=== PATIENT | female | born 1960 | race Caucasian/White ===

== ENCOUNTER → 2017-08-27 | Outpatient (CLI) | payer OTHER ==
--- NOTE | 2017-08-27 18:48 | US ---
EXAMINATION TYPE: US venous doppler duplex LE LT DATE OF EXAM: 08/27/2017 6:38 PM COMPARISON: NONE CLINICAL HISTORY: I80.02 Phlebitis and thrombophlebitis of superfici. Left calf pain and edema. SIDE PERFORMED: Left TECHNIQUE: The lower extremity deep venous system is examined utilizing real time linear array sonog kari with graded compression, doppler sonography and color-flow sonography. VESSELS IMAGED: External Iliac Vein (EIV) Common Femoral Vein Deep Femoral Vein Greater Saphenous Vein * Femoral Vein Popliteal Vein Small Saphenous Vein * Proximal Calf Veins (* superficial vessels) Left Leg: Negative for DVT Appears to be superficial thrombophlebitis in the left calf area of pain and edema. IMPRESSION: No evidence of deep venous thrombosis. There is some superficial calf veins with thrombus however.
== END | disposition home or self-care (01) ==
LOC: RADUSMAIN 17:59
PROVIDERS: ATTEND Family Medicine
DX: I82.812 Embolism and thrombosis of superficial veins of left lower extremity (principal)

== ENCOUNTER 2020-02-01 19:43 | Emergency (ER) | payer BC ==
[2020-02-01] MEDS ORDERED: ONDANSETRON 4 MG/2 ML VIAL IVP STA (21:26)
[2020-02-01] MEDS ORDERED: MORPHINE SULFATE 4 MG/ML SYRINGE IVP STA (21:26)
[2020-02-01 21:27] LABS: Basophils % (A) 0 %; Eosinophils # (A) 0.1 k/uL (0-0.7); Eosinophils % (A) 1 %; HCT 37.7 % (34.0-46.0); HGB 11.9 gm/dL (11.4-16.0); Hypochromasia Slight; Lymphocytes # (A) 1.8 k/uL (1.0-4.8); Lymphocytes % (A) 12 %; MCH 25.7 pg (25.0-35.0); MCHC 31.5 g/dL (31.0-37.0); MCV 81.9 fL (80.0-100.0); Mean Platelet Volume 7.3; Monocytes % (A) 6 %; Neutrophils % (A) 79 %; Platelet Count 490 k/uL (150-450); RBC 4.61 m/uL (3.80-5.40); RDW 12.9 % (11.5-15.5); WBC 15.2 k/uL (3.8-10.6)
[2020-02-01] MEDS ORDERED: ACETAMINOPHEN TAB 500 MG TAB PO STA (21:27)
[2020-02-01] MEDS ORDERED: SODIUM CHLORIDE 0.9% 1,000 ML IV ONE (21:27)
[2020-02-01 21:36] LABS: Prothrombin Time 10.6 sec (9.0-12.0)
[2020-02-01 21:47] LABS: ALT 30 U/L (4-34); AST 40 U/L (14-36); African American GFR (CKD) >90 (>60 ml/min/1.73 sqM); Albumin 3.2 g/dL (3.5-5.0); Alkaline Phosphatase 132 U/L (38-126); Anion Gap 9 mmol/L; Blood Urea Nitrogen 14 mg/dL (7-17); Calcium 8.6 mg/dL (8.4-10.2); Carbon Dioxide 23 mmol/L (22-30); Chloride 100 mmol/L (98-107); Glucose 112 mg/dL (74-99); Non-African American GFR(CKD) 82 (>60 ml/min/1.73 sqM); Potassium 4.3 mmol/L (3.5-5.1); Sodium 132 mmol/L (137-145); Total Bilirubin 0.6 mg/dL (0.2-1.3); Total Protein 6.7 g/dL (6.3-8.2)
--- NOTE | 2020-02-01 22:35 | ED ---
Abdominal Pain HPI - General Chief Complaint: Abdominal Pain Stated Complaint: Abd Pain Time Seen by Provider: 02/01/20 20:46 Source: patient Mode of arrival: ambulatory - History of Present Illness Initial Comments: Patient is a 5-year-old female who presents emergency room in with reported left lower quadrant pain. Reports the pain has been present for about a week. It is constant in nature. She saw her primary care physician last Sunday. Laboratory studies were conducted, she had an elevated white blood cell count. She was given Zofran and azithromycin. Has been taking the medications as directed however reports it's not getting better. Denies any previous history of colitis, diverticulitis or renal stones. Admits to vomiting earlier this week. It is nonbilious nonbloody. Also reports to constipation. [place] chills and fatigue today. Upon arrival it is noted the patient is a fever. Denies dysuria, hematuria or difficult voiding. No ripping or tearing sensation to her back. No lower extremity pain or weakness. No other alleviating, precipitating or modifying factors - Related Data Allergies Allergy/AdvReac Type Severity Reaction Status Date / Time No Known Allergies Allergy Verified 02/01/20 20:27 Review of Systems ROS Statement: Those systems with pertinent positive or pertinent negative responses have been documented in the HPI. ROS Other: All systems not noted in ROS Statement are negative. Past Medical History Past Medical History: No Reported History History of Any Multi-Drug Resistant Organisms: None Reported Past Surgical History: No Surgical Hx Reported Past Psychological History: No Psychological Hx Reported Smoking Status: Current every day smoker Past Alcohol Use History: None Reported Past Drug Use History: None Reported General Exam General appearance: alert, in no apparent distress Head exam: Present: atraumatic, normocephalic, normal inspection Eye exam: Present: normal appearance, PERRL, EOMI. Absent: scleral icterus, conjunctival injection, periorbital swelling ENT exam: Present: normal exam, mucous membranes moist Neck exam: Present: normal inspection. Absent: tenderness, meningismus, lymphadenopathy Respiratory exam: Present: normal lung sounds bilaterally. Absent: respiratory distress, wheezes, rales, rhonchi, stridor Cardiovascular Exam: Present: regular rate, normal rhythm, normal heart sounds. Absent: systolic murmur, diastolic murmur, rubs, gallop, clicks GI/Abdominal exam: Present: soft, tenderness (LLQ ), normal bowel sounds. Absent: distended, guarding, rebound, rigid Extremities exam: Present: normal inspection, full ROM, normal capillary refill. Absent: tenderness, pedal edema, joint swelling, calf tenderness Back exam: Present: normal inspection Neurological exam: Present: alert, oriented X3, CN II-XII intact Psychiatric exam: Present: normal affect, normal mood Skin exam: Present: warm, dry, intact, normal color. Absent: rash Course Vital Signs 02/01/20 02/01/20 02/02/20 20:21 23:32 01:00 Temperature 101.1 F H 98.7 F 97.7 F Pulse Rate 91 59 L Respiratory 18 16 Rate Blood Pressure 152/78 142/78 O2 Sat by Pulse 96 97 Oximetry Medical Decision Making - Medical Decision Making Upon arrival patient was placed into room 5. A thorough history and physical exam was performed. Peripheral IV was established. The patient was given a liter bolus of normal saline as well as 4 mg of morphine and 4 mg of Zofran. Patient is given a gram of Tylenol for her fever. Laboratory studies were conducted which has had a white count of 15.2. Urinalysis is positive for large leukocyte Estrace, 20 red blood cells, greater than 182 white blood cells and rare bacteria. CT of the patient's abdomen and pelvis demonstrate complex retroperitoneal mass on the left which is most likely a large retroperitoneal abscess. Large left renal calculus with advanced atrophy of the left kidney. Dilated fluid-filled left ureter. I discussed results the patient. Results are all discussed with Dr. Eid at [phone]. She is willing to admit the patient to her facility with aortic consult. A call discuss case with Dr. Negro at [phone]. He reviews the patient's images and calls me back at [phone]. Reports the patient should be transferred to a tertiary facility as he is concerned the patient will require nephrectomy. I discussed this with the patient. She is requesting to go via private vehicle. He did inform her of the benefits of going by ambulance the risks of going by private vehicle. The patient continues to refuse months ago by private vehicle. Case discussed with [facility]. Accepting physician is Dr. Hager. Dr. Jones is a surgical attending. Patient was given a dose of Rocephin. Blood cultures were obtained. Patient is instructed to go likely to [facility] this time without stopping at home. The patient understood and she'll be transferred in stable condition - Lab Data Result diagrams: 02/01/20 21:09 02/01/20 21:09 Lab Results 02/01/20 02/01/20 02/01/20 Range/Units 21:09 21:09 21:09 WBC 15.2 H (3.8-10.6) k/uL RBC 4.61 (3.80-5.40) m/uL Hgb 11.9 (11.4-16.0) gm/dL Hct 37.7 (34.0-46.0) % MCV 81.9 (80.0-100.0) fL MCH 25.7 (25.0-35.0) pg MCHC 31.5 (31.0-37.0) g/dL RDW 12.9 (11.5-15.5) % Plt Count 490 H (150-450) k/uL Neutrophils % 79 % Lymphocytes % 12 % Monocytes % 6 % Eosinophils % 1 % Basophils % 0 % Neutrophils # 12.0 H (1.3-7.7) k/uL Lymphocytes # 1.8 (1.0-4.8) k/uL Monocytes # 1.0 (0-1.0) k/uL Eosinophils # 0.1 (0-0.7) k/uL Basophils # 0.0 (0-0.2) k/uL Hypochromasia Slight PT (9.0-12.0) sec INR (<1.2) APTT (22.0-30.0) sec Sodium 132 L (137-145) mmol/L Potassium 4.3 (3.5-5.1) mmol/L Chloride 100 (98-107) mmol/L Carbon Dioxide 23 (22-30) mmol/L Anion Gap 9 mmol/L BUN 14 (7-17) mg/dL Creatinine 0.79 (0.52-1.04) mg/dL Est GFR (CKD-EPI)AfAm >90 (>60 ml/min/1.73 sqM) Est GFR (CKD-EPI)NonAf 82 (>60 ml/min/1.73 sqM) Glucose 112 H (74-99) mg/dL Plasma Lactic Acid Armando (0.7-2.0) mmol/L Calcium 8.6 (8.4-10.2) mg/dL Total Bilirubin 0.6 (0.2-1.3) mg/dL AST 40 H (14-36) U/L ALT 30 (4-34) U/L Alkaline Phosphatase 132 H (38-126) U/L Total Protein 6.7 (6.3-8.2) g/dL Albumin 3.2 L (3.5-5.0) g/dL Lipase 25 (23-300) U/L Urine Color Yellow Urine Appearance Cloudy H (Clear) Urine pH 6.0 (5.0-8.0) Ur Specific [place] >1.050 H (1.001-1.035) Urine Protein 1+ H (Negative) Urine Glucose (UA) Negative (Negative) Urine Ketones Negative (Negative) Urine Blood Small H (Negative) Urine Nitrite Negative (Negative) Urine Bilirubin Negative (Negative) Urine Urobilinogen <2.0 (<2.0) mg/dL Ur Leukocyte Esterase Large H (Negative) Urine RBC 20 H (0-5) /hpf Urine WBC >182 H (0-5) /hpf Ur Squamous Epith Cells 2 (0-4) /hpf Urine Bacteria Rare H (None) /hpf Urine Mucus Rare H (None) /hpf 02/01/20 02/01/20 Range/Units 21:09 21:10 WBC (3.8-10.6) k/uL RBC (3.80-5.40) m/uL Hgb (11.4-16.0) gm/dL Hct (34.0-46.0) % MCV (80.0-100.0) fL MCH (25.0-35.0) pg MCHC (31.0-37.0) g/dL RDW (11.5-15.5) % Plt Count (150-450) k/uL Neutrophils % % Lymphocytes % % Monocytes % % Eosinophils % % Basophils % % Neutrophils # (1.3-7.7) k/uL Lymphocytes # (1.0-4.8) k/uL Monocytes # (0-1.0) k/uL Eosinophils # (0-0.7) k/uL Basophils # (0-0.2) k/uL Hypochromasia PT 10.6 (9.0-12.0) sec INR 1.0 (<1.2) APTT 24.0 (22.0-30.0) sec Sodium (137-145) mmol/L Potassium (3.5-5.1) mmol/L Chloride (98-107) mmol/L Carbon Dioxide (22-30) mmol/L Anion Gap mmol/L BUN (7-17) mg/dL Creatinine (0.52-1.04) mg/dL Est GFR (CKD-EPI)AfAm (>60 ml/min/1.73 sqM) Est GFR (CKD-EPI)NonAf (>60 ml/min/1.73 sqM) Glucose (74-99) mg/dL Plasma Lactic Acid Armando 0.9 (0.7-2.0) mmol/L Calcium (8.4-10.2) mg/dL Total Bilirubin (0.2-1.3) mg/dL AST (14-36) U/L ALT (4-34) U/L Alkaline Phosphatase (38-126) U/L Total Protein (6.3-8.2) g/dL Albumin (3.5-5.0) g/dL Lipase (23-300) U/L Urine Color Urine Appearance (Clear) Urine pH (5.0-8.0) Ur Specific [place] (1.001-1.035) Urine Protein (Negative) Urine Glucose (UA) (Negative) Urine Ketones (Negative) Urine Blood (Negative) Urine Nitrite (Negative) Urine Bilirubin (Negative) Urine Urobilinogen (<2.0) mg/dL Ur Leukocyte Esterase (Negative) Urine RBC (0-5) /hpf Urine WBC (0-5) /hpf Ur Squamous Epith Cells (0-4) /hpf Urine Bacteria (None) /hpf Urine Mucus (None) /hpf - EKG Data EKG Comments: EKG demonstrates normal sinus rhythm with a ventricular rate of 72. MD interval 148. QRS 96. QTC 411. No acute ST segment elevations or depressions concerning for ischemic changes Disposition Clinical Impression: Abdominal pain, Retroperitoneal abscess, Left renal stone, Atrophy of left kidney, Leukocytosis Disposition: OTHER INSTITUTION NOT DEFINED Condition: Serious Is patient prescribed a controlled substance at d/c from ED?: No Referrals: Kay Back DO [Primary Care Provider] - 1-2 days Time of Disposition: 01:37 - Out of Hospital Transfer - Req. Specs Out of Hospital Transfer - Requested Specifics: Other Emergency Center ([facility]
--- NOTE | 2020-02-01 22:50 | CT ---
EXAMINATION TYPE: CT abdomen pelvis w con DATE OF EXAM: 02/01/2020 COMPARISON: None HISTORY: abdominal pain, nausea, fever CT DLP: 1780 mGycm Automated exposure control for dose reduction was used. CONTRAST: Performed with IV Contrast, patient injected with 100 mL of Isovue 300. Images obtained from the diaphragm to the floor the pelvis with IV contrast. FINDINGS: There is small left pleural effusion. There is left basilar mild infiltrate and atelectasis. Heart si ze is normal. There is no pericardial effusion. The stomach is intact. Spleen is intact. Liver shows no focal defect. The bile ducts are not dilated. Gallbladder appears normal. There is no evidence of pancreatic mass. There is a significant left renal atrophy with left renal large calculus at the renal pelvis. There i s a large mass in the left paraspinal region in the retroperitoneum posterior and medial to the left kidney. Mass measures 5 x 7 x 14 cm. This has soft tissue density and fluid density components. Mass is contiguous with the left adrenal gland and the left posterior upper pole of the atrophic left kidn ey. I see no focal bone destruction. The right kidneys show satisfactory contrast opacification with no hydronephrosis. Right ureter appears normal. There is dilated left ureter with fluid. Bladder dist ends smoothly. There is no retroperitoneal adenopathy. There is small right inguinal hernia. Uterus i s absent. There is no pelvic mass. There is no mesenteric edema. There is no ascites or free air. The re is no sign of a bowel obstruction. Appendix is medial and appears normal. Lumbar vertebra have normal alignment. Disc spaces are fairly normal. Posterior elements are intact. Bony pelvis is intact. IMPRESSION: Complex retroperitoneal mass on the left side is most likely related to a large retroperitoneal absce ss. There is large left renal calculus with advanced atrophy of the left kidney. There is dilated flu id-filled left ureter. Small left pleural effusion and left basilar mild atelectasis.. I do not see a ny tissue invasion to suggest a sarcoma.
[2020-02-01 23:40] LABS: Appearance,Urine Cloudy (Clear); Bacteria,Urine Rare /hpf; Bilirubin,Urine Negative (Negative); Blood,Urine Small (Negative); Color,Urine Yellow; Glucose,Urine (UA) Negative (Negative); Ketones,Urine Negative (Negative); Leukocyte Esterase,Urine Large (Negative); Mucus,Urine Rare /hpf; Nitrite,Urine Negative (Negative); Protein,Urine 1+ (Negative); RBC,Urine 20 /hpf (0-5); Squamous Epithelial Cell,Urine 2 /hpf (0-4); Urobilinogen,Urine <2.0 mg/dL (<2.0); WBC,Urine >182 /hpf (0-5)
[2020-02-01 23:41] LABS: Specific Gravity,Urine >1.050 (1.001-1.035)
[2020-02-02 01:25] VITALS: BP 142/78; PULSE 59; RESP 16; TEMP 97.7
== END 2020-02-02 01:53 | disposition other institution (70) ==
LOC: EC 19:43
DX: N20.0 Calculus of kidney (principal); N26.1 Atrophy of kidney (terminal); K68.19 Other retroperitoneal abscess; D72.829 Elevated white blood cell count, unspecified; F17.200 Nicotine dependence, unspecified, uncomplicated
CPT/HCPCS: 36415; 93005; 80053; 83605; 83690; 85025; 85610; 85730; 81001; 87040; 87086; 74177; 99285; 96361; 96374; 96375 ×2; J2270; J2405; J0696; Q9967